=== PATIENT | female | born 1955 | race Caucasian/White ===

== ENCOUNTER 2018-07-14 19:26 | Emergency (ER) | payer OTHER ==
[~2018-07-14] VITALS: Ht 170.2 cm; Wt 83.9 kg
[~2018-07-14 19:26] MED LIST: CYMBALTA60 MG; LEVOTHYROXIN0.175 MG; NORCO 5-325 TA1 EAC1 PO; PREMARIN
[2018-07-14] MEDS ORDERED: MS CONTIN15 MG PO (19:39)
[2018-07-14] MEDS ORDERED: NORCO 5-325 TA1 EAC1 PO (20:19)
[2018-07-14 20:42] VITALS: BP 177/98
== END 2018-07-14 20:43 | disposition home or self-care (01) ==
LOC: M.ERS 19:26
DX: S52.522A Torus fracture of lower end of left radius, initial encounter for closed fracture (principal); E03.9 Hypothyroidism, unspecified; F31.9 Bipolar disorder, unspecified; Z88.0 Allergy status to penicillin; W18.39XA Other fall on same level, initial encounter; Y93.89 Activity, other specified; Y92.89 Other specified places as the place of occurrence of the external cause; Y99.8 Other external cause status